=== PATIENT | male | born 1980 | race Caucasian/White ===

== ENCOUNTER 2018-09-08 18:16 | Emergency (ER) | payer OTHER ==
[~2018-09-08] VITALS: Ht 188 cm; Wt 81.7 kg
[2018-09-08] MEDS ORDERED: ATIVAN0.5 MG PO (19:42)
[2018-09-08] MEDS ORDERED: CLONIDINE0.1 PO (19:42)
[2018-09-08 19:55] VITALS: BP 130/79
== END 2018-09-08 19:56 | disposition home or self-care (01) ==
LOC: ER 18:16
DX: F11.23 Opioid dependence with withdrawal (principal); Z87.898 Personal history of other specified conditions; F17.210 Nicotine dependence, cigarettes, uncomplicated